=== PATIENT | female | born 1970 ===

== ENCOUNTER 2025-01-29 17:58 | Emergency (ER) | payer SELFPAY ==
[~2025-01-29] VITALS: Ht 170.2 cm; Wt 63.5 kg
[2025-01-29] MEDS ORDERED: Ketorolac Tromethamine 15mg Vial IV ONE (18:10)
[2025-01-29] MEDS ORDERED: HYDROmorphone HCl/Pf 1MG SYR IM ONE (19:40)
[2025-01-29] MEDS ORDERED: RX Prepack 6 Tabs Oxycodone 5mg UD ONE (21:30)
[2025-01-29] MEDS ORDERED: Roxicodone5 MG PO (21:30)
== END 2025-01-29 22:00 | disposition home or self-care (01) ==
LOC: ER 17:58
DX: S52.592A Other fractures of lower end of left radius, initial encounter for closed fracture (principal); W17.81XA Fall down embankment (hill), initial encounter; Z88.1 Allergy status to other antibiotic agents
CPT/HCPCS: 25605; 73100; 73110; 96372-59; 99283-25; A9270; J1171; J1885